=== PATIENT | male | born 1945 | race Caucasian/White ===

== ENCOUNTER 2023-11-21 12:23 | Emergency (ER) | payer MEDICARE, OTHER ==
[2023-11-21 12:39] VITALS: BP 123/74; O2SAT 96
--- NOTE | 2023-11-21 13:53 | XRAY Report ---
PROCEDURE: Ankle 3+V RT INDICATIONS: Trauma TECHNIQUE: 3 views of the ankle were acquired. COMPARISON: None. FINDINGS: Bones: No fractures or dislocations. Old healed distal tibia and fibular shaft fractures. Ankle mort ise is normally aligned. No suspicious bony lesions. Soft tissues: No tibiotalar joint effusion. Achilles tendon appears normal. IMPRESSION: No acute bony abnormality. Reviewed by: Yuniel Majano MD on 11/21/2023 1:52 PM PDT Approved by: Yuniel Majano MD on 11/21/2023 1:52 PM PDT Station ID: [id number]
--- NOTE | 2023-11-21 14:16 | ED Physician Documentation ---
History of Present Illness - Stated complaint Stated Complaint: Right ankle pain - Chief complaint Chief Complaint: Ext Problem - Additonal information Additional information: 78-year-old male with history of MT and no other pertinent past medical history presents emergency department for chronic right ankle pain. Patient says that he went for a walk in July and started to feel medial malleolus tenderness. He says that there is no change in the pain that has waxed and waned since then but his family was worried about him and they told him to come to the emergency department for further evaluation. He does have a primary care provider who he has not seen for this he said that he has taken Advil once between July and today. PD PAST MEDICAL HISTORY - Past Medical History Past Medical History: Yes Cardiovascular: MT, Other - Past Surgical History Past Surgical History: Yes Cardiovascular: Coronary stent - Allergies Allergies/Adverse Reactions: Allergies Allergy/AdvReac Type Severity Reaction Status Date / Time No Known Drug Allergies Allergy Verified 11/21/23 12:35 - Social History Does the pt smoke?: No Smoking Status: Never smoker Does the pt drink ETOH?: Yes Does the pt have substance abuse?: No - Immunizations Immunizations are current?: Yes PD ED PE NORMAL - Vitals Vital signs reviewed: Yes - General General: Alert and oriented X 3, No acute distress, Well developed/nourished - Derm Derm: Normal color, Warm and dry, No rash - Extremities Extremities: Other (Right lower extremity: Full range of motion to right ankle there is mild tenderness to the medial malleolus with mild swelling. No erythema no redness not warm to the touch, strong dorsalis pedis pulse, CMS intact) - Psych Psych: Normal mood Results - Vitals Vitals: Vital Signs - 24 hr 11/21/23 12:30 Temperature 36.5 C Heart Rate 70 Respiratory 16 Rate Blood Pressure 123/74 O2 Saturation 96 Oxygen O2 Source Room air - Rads (name of study) Right ankle x-ray Relevant Findings:: Final report received, EMP independent interpretation of test, Other (No acute bony abnormalities no fractures no dislocations.) PD Medical Decision Making - ED course ED course: 78-year-old male presents emergency department for 2 months of right ankle pain. Differentials to consider but not excluded, septic joint, cellulitis, unhealed fracture, old fracture, arthritis, gout. Right ankle is not warm to the touch there is pinpoint tenderness to the medial malleolus region he has not taken any Tylenol or ibuprofen for a long time he is told to start taking Tylenol ibuprofen but limit ibuprofen use due to his age and follow-up with Ortho outpatient for further evaluation. X-rays were complete no acute bony abnormalities or fractures are visualized and I do not believe that patient is experiencing any sort of septic joint he has not had any fevers or chills it is not warm to the touch there is no severe erythema. Most likely arthritis or tendinitis he is told to follow-up with Ortho outpatient contact information given and patient also told to follow-up with primary care provider for further evaluation of this. All questions answered return precautions given patient safer discharge at this time. Departure - Departure Disposition: 01 Home, Self Care Clinical Impression: Tendonitis of ankle Instructions: ED Tendinitis Calcific Follow-Up: HONEY LOMELI MD [Physician No Access] - HONEY LOMELI MD [Physician No Access] - Comments: Thank you for trusting us with your care. I would follow-up with Ortho outpatient for further evaluation of this chronic ankle pain. I continue to Alex wrap if this has been found to be helpful for you with alleviating pain and symptoms I would also consider adding Tylenol to see if it helps with your pain discomfort. Apply ice 20 minutes on 1 hour off. Forms: PCP List Discharge Date/Time: 11/21/23 14:34
== END 2023-11-21 14:34 | disposition home or self-care (01) ==
LOC: ED 12:23
DX: M77.51 Other enthesopathy of right foot and ankle (principal)
CPT/HCPCS: 99283